=== PATIENT | female | born 1965 | race Caucasian/White ===

== ENCOUNTER 2023-04-05 07:01 | Day surgery (SDC) | payer BC, SELFPAY ==
[2023-04-05] VITALS (8 sets, daily range): BP systolic 96–125; BP diastolic 58–73; BMI 29.0
[2023-04-05] MEDS: LOW STRENGTH ASPIRIN 81 MG PO (07:30)
[2023-04-05] MEDS: NSS 237 ML IV (08:06)
--- NOTE | 2023-04-05 09:07 | ITS.CL.CATH ---
[employer] - Catheterization
Cardiac Catheterization
Procedure Report:
CARDIAC CATHETERIZATION REPORT
Date of Procedure: 04/05/2023
Referring: Moris Mattson MD
Indication: Exertional dyspnea
HEMODYNAMIC DATA
AO: 142/81
LV: 142/14
LEFT VENTRICULOGRAPHY: Normal wall motion with EF 59%
CORONARY ANGIOGRAPHY
Dominance: Right
Left Main: Normal
LAD: Normal
Circumflex: Normal
RCA: Normal dominant vessel
Closure Device: None-the procedure was performed via the right radial artery. The Arun's test was normal prior to the procedure.
Radiation (mGy): 144
DAP (cm2.Gy): 10.5
Fluoroscopy time: 1.6 minutes
CONCLUSIONS
1: Normal left ventricular wall motion with EF 59%
2: Normal coronary arteries
Copy to: Moris Mattson MD, Zion Rolle MD
Matthias Herrera MD, [facility], [facility]
[2023-04-05] MEDS: NSS 1000 IV (09:24)
== END 2023-04-05 11:50 | disposition home or self-care (01) ==
LOC: CATH 07:01
PROVIDERS: ATTENDING PHYSICIAN Internal Medicine Cardiovascular Disease; FAMILY PHYSICIAN Internal Medicine; OTHER PHYSICIAN Internal Medicine Cardiovascular Disease
DX: R06.09 Other forms of dyspnea (principal)
CPT/HCPCS: 93458; C1894; Q9967